=== PATIENT | male | born 1945 | race Caucasian/White ===

== ENCOUNTER 2017-06-27 00:02 | Emergency (ER) | payer MEDICARE ==
[~2017-06-27] VITALS: Ht 177.8 cm; Wt 70.8 kg
[~2017-06-27 00:02] MED LIST changes: -ASPI-1471 PO
[2017-06-27] MEDS ORDERED: DILTIAZEM 5 MG/ML 5ML IVPUSH IVP ONE (00:10)
[2017-06-27] MEDS ORDERED: ASPIRIN 81 MG CHEW PO ONE (00:10)
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
[2017-06-27 00:19] LABS: PLATELET COUNT, AUTOMATED 243 K/uL (150-450)
[2017-06-27] MEDS ORDERED: ONDANSETRON 4 MG/2 ML VIAL ONE (00:24)
[2017-06-27] MEDS ORDERED: MORPHINE 4 MG/ML SYR IVP ONE (00:25)
[2017-06-27] MEDS ORDERED: MORPHINE 4 MG/ML SYR ONE (00:25)
[2017-06-27] MEDS ORDERED: ONDANSETRON 4 MG/2 ML VIAL IVP ONE (00:25)
[2017-06-27 00:31] LABS: INR 0.97
[2017-06-27] MEDS: HEPARIN (PORC) 5000 UN/ML VIAL ONE ×2 (00:35→00:44)
--- NOTE | 2017-06-27 00:36 | RADIOLOGY IMAGING REPORT ---
FACILITY: [facility] - [place] PATIENT NAME: Fany Casas : 1945 MR: [id number] V: [id number] EXAM DATE: ORDERING PHYSICIAN: CHARO DAMIAN TECHNOLOGIST: Location: [facility] Patient: Fany Casas : 1945 Visit/Account:[id number] Date of Sevice: 06/27/2017 SINGLE AP RADIOGRAPH OF THE CHEST 06/27/2017 12:10 AM. INDICATION: Chest pain. COMPARISON: 05/24/2011. FINDINGS: There is bilateral prominent mixed opacification with relative sparing of the upper lungs. Small ple ural effusions not excluded. No pneumothorax. Cardiac silhouette is borderline enlarged. Multiple remote right rib fractures. IMPRESSION: Suspicious for multifocal pneumonia. Edema could potentially have a similar appearance. Report Dictated By: Miguel Angel Tanner MD at 06/27/2017 12:29 AM Report E-Signed By: Miguel Angel Tanner MD at 06/27/2017 12:31 AM WSN:[id number]
[2017-06-27] MEDS ORDERED: HEPARIN* SOD/D5W 25000 U/500ML 500 ML IV ONE (00:37)
[2017-06-27] MEDS ORDERED: CLOPIDOGREL BISULFATE 75MG TAB PO ONE (00:40)
--- NOTE | 2017-06-27 01:23 | RADIOLOGY IMAGING REPORT ---
FACILITY: [facility] - [place] PATIENT NAME: Fany Casas : 1945 MR: [id number] V: [id number] EXAM DATE: ORDERING PHYSICIAN: CHARO DAMIAN TECHNOLOGIST: [place] [facility] [place] Fany Casas : 1945 Visit/Account:[id number] Date of Sevice: 06/27/2017 Portable chest: Indication: Tube placement. Technique: A single frontal film was obtained. Comparison: A prior study from earlier the same day. Lines and tubes: The tip of the ET tube is 5.3 cm above the nika. Skeletal and soft tissue structures: Unchanged. Heart and mediastinum: Stable. Lung frazier: There is a persistent diffuse edema pattern, compatible with vascular congestion or diff use pneumonia. There is been no change. Pleural spaces: No evidence of pneumothorax. Probable small right effusion. Impression: The ET tube is 5.3 cm above the nika. The lung frazier appear unchanged. Report Dictated By: Krishna Durham MD at 06/27/2017 1:14 AM Report E-Signed By: Krishna Durham MD at 06/27/2017 1:18 AM WSN:[id number]
--- NOTE | 2017-06-27 01:47 | EKG ---
FACILITY: [facility] - [place] PATIENT NAME: THEA SANTANA : [id number] MR: [id number] V: [id number] EXAM DATE: ORDERING PHYSICIAN: CHARO DAMIAN TECHNOLOGIST: ISRAEL Guzman Reason : TACHYCARDIA Blood Pressure : / mmHG Vent. Rate : 129 BPM Atrial Rate : 129 BPM P-R Int : 136 ms QRS Dur : 160 ms QT Int : 376 ms P-R-T Axes : 025 -27 121 degrees QTc Int : 550 ms Wide complex tachycardia Left bundle branch morphology Diffuse ST-T abnormalities Abnormal ECG Confirmed by HUMBERTO MCCANN ([id number] on 06/27/2017 6:17:46 AM Referred By: RICKIE Confirmed By:HUMBERTO MCCANN
[2017-06-27] MEDS ORDERED: ASPI-1471 PO (02:46)
[2017-06-27] MEDS ORDERED: NS(*) 0.9% 1000 ML BAG 1,000 ML IV ONE ×2 (03:35→03:40)
[2017-06-27] MEDS ORDERED: PROPOFOL(*)1000 MG/100 ML VIAL 100 ML IV PRN (04:30)
[2017-06-27] MEDS ORDERED: ETOMIDATE 20 MG/10 ML VIAL IVP ONE (04:30)
[2017-06-27] MEDS ORDERED: PROPOFOL EMUL 10MG/ML 20 ML VL IVP ONE (04:30)
[2017-06-27] MEDS ORDERED: SUCCINYLCHOL CHL 200MG/10ML VL IVP ONE (04:30)
[2017-06-27] MEDS ORDERED: MIDAZOLAM 2 MG/2 ML VIAL IVP ONE (04:30)
== END 2017-06-27 01:36 | disposition short-term general hospital (02) ==
LOC: ER 00:29
DX: J96.01 Acute respiratory failure with hypoxia (principal); I50.9 Heart failure, unspecified; I95.9 Hypotension, unspecified; I44.7 Left bundle-branch block, unspecified; I24.9 Acute ischemic heart disease, unspecified
CPT/HCPCS: 31500; 36600; 71045; 81001; 82803; 83880; 84484; 85025; 85379; 85610; 85730; 93005; 94002; 94770; 96365; 96375; 99291; A9270; C1758; J0330; J1644; J2250; J2270; J2405; J2704; J3490; J7030; 82040; 82247; 82310; 82374; 82435; 82565; 82947; 84075; 84132; 84155; 84295; 84450; 84460; 84520; 99285

== ENCOUNTER → 2017-06-27 | Outpatient (REF) ==
[~2017-06-27] MED LIST: ALLO-119 PO; ASPI-1471 PO; ASPI-715 PO; CEP500 PO; CILO100T25 PO; CIP500 PO; CLO75 PO; ESC10 PO; FAM20 PO; IBU600 PO; LOR5/325 PO; OMEG-11 PO; PHENA200 PO; [UNRECOGNIZED DRUG - REMARK]
== END ==
LOC: AMB 01:02
PROVIDERS: ATTEND Nurse Practitioner
DX: Z02.9 Encounter for administrative examinations, unspecified (principal)

== ENCOUNTER 2017-10-29 08:53 | Inpatient (IN) | payer MEDICARE ==
[2017-10-28 11:42] VITALS: BP 152/90
[~2017-10-29] VITALS: Ht 175.3 cm; Wt 67.1 kg
[~2017-10-29 08:53] MED LIST changes: +ASPI-1471 PO
--- NOTE | 2017-10-29 09:00 | ER Report ---
History and Physical Time Seen By MD: 08:58 HPI/ROS CHIEF COMPLAINT: GI bleed since last night HISTORY OF PRESENT ILLNESS: Patient is a 71 yo M here with new complaint of GI bleed since last evening. Patient reports several episodes of GI bleed with BRBPR with some clotting. Patient is otherwise well-appearing, complains of mild fatigue. He has a history of aortic valve replacement and is currently on aspirin regimen without other anticoagulation. He had a single bowel movement while in the emergency department which was grossly positive for blood. He remains hemodynamically stable at time of evaluation. He has had a recent colonoscopy within the last 5 years which was normal per patient report. He denies fevers, chills, CP, SOB, N/V. He does have complaints of mid/low back pain intermittently for the past week. + hematochezia. Patient does have a history of bladder cancer which was treated several years prior. REVIEW OF SYSTEMS: Constitutional: No fever, no chills, + fatigue Eyes: No discharge. ENT: No sore throat. Cardiovascular: No chest pain, no palpitations. Respiratory: No cough, no shortness of breath. Gastrointestinal: + mild right abdominal pain, no vomiting, + hematochezia Genitourinary: No hematuria. Musculoskeletal: + mild low back pain. Skin: No rashes. Neurological: No headache. Allergies: Coded Allergies: No Known Drug Allergies (Verified , 10/29/17) Home Meds Reported Medications Enalapril Maleate (ENALAPRIL MALEATE) 10 Mg Tablet, 10 MG PO QDAY 10/29/17 Aspirin (ASPIR 81) 81 Mg Tablet.dr, 81 MG PO QDAY, TAB 06/27/17 Allopurinol (ZYLOPRIM) 300 Mg Tablet, PO QDAY, TAB 09/12/14 Discontinued Reported Medications Cilostazol (Cilostazol) 100 Mg Tablet, 100 MG PO QODAY, 0 Refills 05/21/11 Past Medical/Surgical History Deep vein thrombosis, bladder cancer, aortic valve replacement Hx Smoking: No Smoking Status: Former Smoker Hx Substance Use Disorder: No Hx Alcohol Use: No Constitutional Vital Sign - Last 24 Hours 10/29/17 10/29/17 10/29/17 10/29/17 09:00 09:03 09:23 09:30 Temp 97.6 Pulse 81 72 Resp 20 B/P (MAP) 147/81 147/81 (103) 126/67 (86) Pulse Ox 92 93 O2 Delivery Room Air Physical Exam General Appearance: The patient is alert, has no immediate need for airway protection and no current signs of toxicity. Eyes: Pupils equal and round no injection. Respiratory: Chest is non tender, lungs are clear to auscultation. Cardiac: regular rate and rhythm [ ] Gastrointestinal: Abdomen is soft and + mild right abdominal tenderness, no masses, bowel sounds normal. Musculoskeletal: Neck: Neck is supple and non tender. Extremities have full range of motion and are non tender. Skin: No rashes or lesions. DIFFERENTIAL DIAGNOSIS: After history and physical exam differential diagnosis was considered for Lower GI bleed, upper GI bleed, diverticulitis, cancer, polyp , AVM Medical Decision Making Data Points Result Diagram: 10/29/1711 10/29/17 0911 Laboratory Hematology Test 10/29/17 00:00 10/29/17 09:11 10/29/17 09:38 Stool Occult Blood (IFOB) Positive (NEGATIVE) Red Blood Count 4.09 M/uL (4.00-5.60) Mean Corpuscular Volume 96.5 fL (80.0-96.0) Mean Corpuscular Hemoglobin 33.0 pg (26.0-33.0) Mean Corpuscular Hemoglobin Concent 34.2 g/dL (32.0-36.0) Red Cell Distribution Width 14.1 % (11.5-14.5) Mean Platelet Volume 6.9 fL (7.2-11.1) Neutrophils (%) (Auto) 71.1 % (39.4-72.5) Lymphocytes (%) (Auto) 15.4 % (17.6-49.6) Monocytes (%) (Auto) 7.8 % (4.1-12.4) Eosinophils (%) (Auto) 4.9 % (0.4-6.7) Basophils (%) (Auto) 0.8 % (0.3-1.4) Nucleated RBC Relative Count (auto) 0.0 /100WBC Neutrophils # (Auto) 4.9 K/uL (2.0-7.4) Lymphocytes # (Auto) 1.0 K/uL (1.3-3.6) Monocytes # (Auto) 0.5 K/uL (0.3-1.0) Eosinophils # (Auto) 0.3 K/uL (0.0-0.5) Basophils # (Auto) 0.1 K/uL (0.0-0.1) Nucleated RBC Absolute Count (auto) 0.00 K/uL Prothrombin Time 13.1 seconds (12.0-14.4) Prothromb Time International Ratio 0.99 Activated Partial Thromboplast Time 26 seconds (23-35) Sodium Level 131 mmol/L (137-145) Potassium Level 4.6 mmol/L (3.5-5.0) Chloride Level 96 mmol/L (98-107) Carbon Dioxide Level 25 mmol/L (22-30) Blood Urea Nitrogen 13 mg/dl (9-21) Creatinine 0.90 mg/dl (0.66-1.25) Glomerular Filtration Rate Calc > 60.0 Random Glucose 119 mg/dl (75-110) Calcium Level 9.5 mg/dl (8.4-10.2) Total Bilirubin 0.6 mg/dl (0.2-1.3) Aspartate Amino Transf (AST/SGOT) 49 U/L (0-35) Alanine Aminotransferase (ALT/SGPT) 34 U/L (0-56) Alkaline Phosphatase 93 U/L (0-126) Total Protein 7.0 gm/dl (6.3-8.2) Albumin 3.9 g/dl (3.5-5.0) Lipase 86 U/L (23-300) Urine Color Yellow Urine Clarity Clear Urine pH 5.0 pH (4.8-9.5) Urine Specific Orosi 1.012 Urine Protein Negative mg/dL (NEGATIVE) Urine Glucose (UA) Negative mg/dL (NEGATIVE) Urine Ketones Negative mg/dL (NEGATIVE) Urine Blood Negative (NEGATIVE) Urine Nitrite Negative (NEGATIVE) Urine Bilirubin Negative (NEGATIVE) Urine Urobilinogen Negative mg/dL (0.2-1.9) Urine Leukocyte Esterase Negative (NEGATIVE) Urine RBC None /HPF (0-2/HPF) Urine WBC <1 /HPF (0-5/HPF) Urine Squamous Epithelial Cells Few /LPF (</=FEW) Urine Bacteria Negative /HPF (NONE-FEW) Urine Mucus None /HPF (NONE-FEW) Chemistry Test 10/29/17 00:00 10/29/17 09:11 10/29/17 09:38 Stool Occult Blood (IFOB) Positive (NEGATIVE) White Blood Count 6.8 k/uL (4.5-11.0) Red Blood Count 4.09 M/uL (4.00-5.60) Hemoglobin 13.5 g/dL (14.0-18.0) Hematocrit 39.5 % (42.0-52.0) Mean Corpuscular Volume 96.5 fL (80.0-96.0) Mean Corpuscular Hemoglobin 33.0 pg (26.0-33.0) Mean Corpuscular Hemoglobin Concent 34.2 g/dL (32.0-36.0) Red Cell Distribution Width 14.1 % (11.5-14.5) Platelet Count 269 K/uL (150-450) Mean Platelet Volume 6.9 fL (7.2-11.1) Neutrophils (%) (Auto) 71.1 % (39.4-72.5) Lymphocytes (%) (Auto) 15.4 % (17.6-49.6) Monocytes (%) (Auto) 7.8 % (4.1-12.4) Eosinophils (%) (Auto) 4.9 % (0.4-6.7) Basophils (%) (Auto) 0.8 % (0.3-1.4) Nucleated RBC Relative Count (auto) 0.0 /100WBC Neutrophils # (Auto) 4.9 K/uL (2.0-7.4) Lymphocytes # (Auto) 1.0 K/uL (1.3-3.6) Monocytes # (Auto) 0.5 K/uL (0.3-1.0) Eosinophils # (Auto) 0.3 K/uL (0.0-0.5) Basophils # (Auto) 0.1 K/uL (0.0-0.1) Nucleated RBC Absolute Count (auto) 0.00 K/uL Prothrombin Time 13.1 seconds (12.0-14.4) Prothromb Time International Ratio 0.99 Activated Partial Thromboplast Time 26 seconds (23-35) Glomerular Filtration Rate Calc > 60.0 Calcium Level 9.5 mg/dl (8.4-10.2) Total Bilirubin 0.6 mg/dl (0.2-1.3) Aspartate Amino Transf (AST/SGOT) 49 U/L (0-35) Alanine Aminotransferase (ALT/SGPT) 34 U/L (0-56) Alkaline Phosphatase 93 U/L (0-126) Total Protein 7.0 gm/dl (6.3-8.2) Albumin 3.9 g/dl (3.5-5.0) Lipase 86 U/L (23-300) Urine Color Yellow Urine Clarity Clear Urine pH 5.0 pH (4.8-9.5) Urine Specific Orosi 1.012 Urine Protein Negative mg/dL (NEGATIVE) Urine Glucose (UA) Negative mg/dL (NEGATIVE) Urine Ketones Negative mg/dL (NEGATIVE) Urine Blood Negative (NEGATIVE) Urine Nitrite Negative (NEGATIVE) Urine Bilirubin Negative (NEGATIVE) Urine Urobilinogen Negative mg/dL (0.2-1.9) Urine Leukocyte Esterase Negative (NEGATIVE) Urine RBC None /HPF (0-2/HPF) Urine WBC <1 /HPF (0-5/HPF) Urine Squamous Epithelial Cells Few /LPF (</=FEW) Urine Bacteria Negative /HPF (NONE-FEW) Urine Mucus None /HPF (NONE-FEW) Coagulation Test 10/29/17 09:11 Prothrombin Time 13.1 seconds Prothromb Time International Ratio 0.99 Activated Partial Thromboplast Time 26 seconds Urinalysis Test 10/29/17 09:38 Urine Color Yellow Urine Clarity Clear Urine pH 5.0 pH (4.8-9.5) Urine Specific Orosi 1.012 Urine Protein Negative mg/dL (NEGATIVE) Urine Glucose (UA) Negative mg/dL (NEGATIVE) Urine Ketones Negative mg/dL (NEGATIVE) Urine Blood Negative (NEGATIVE) Urine Nitrite Negative (NEGATIVE) Urine Bilirubin Negative (NEGATIVE) Urine Urobilinogen Negative mg/dL (0.2-1.9) Urine Leukocyte Esterase Negative (NEGATIVE) Urine RBC None /HPF (0-2/HPF) Urine WBC <1 /HPF (0-5/HPF) Urine Squamous Epithelial Cells Few /LPF (</=FEW) Urine Bacteria Negative /HPF (NONE-FEW) Urine Mucus None /HPF (NONE-FEW) EKG/Imaging Imaging ABDOMEN/PELVIS WITH CONTRAST HISTORY: GI bleed, abdominal and back pain TECHNIQUE: Axial images were obtained through the abdomen and pelvis with intravenous contrast . One of the following dose optimization techniques was utilized in the performance of this exam: automated exposure control; adjustment of the mA and/or kv according to patient size; or use of iterative reconstruction technique. Specific details can be referenced in the facility's radiology CT exam operational policy. CONTRAST: 75 cc of Isovue-370 COMPARISON: None. FINDINGS: Visualized lung bases: Negative. Hepatobiliary: Negative. Spleen: Negative. Adrenals: Negative. Pancreas: Negative. Kidneys/ureters/bladder: Right nephrectomy. Left kidney normal size without hydronephrosis. Bowel/peritoneum/mesentery: Colonic diverticulosis without acute inflammatory change. No bowel obstruction, free air or ascites. Vessels: Mild arterial calcifications. Lymph nodes: Negative. Pelvic genitourinary: Negative. Bones/body wall: Multilevel [id number] degenerative disc disease within the spine. Multiple Schmorl's nodes. Fusion of the right SI joint. Other findings: None significant IMPRESSION: 1. No acute inflammatory process identified. ED Course/Re-evaluation ED Course Patient is a 71-year-old male here with complaints of GI bleeding since yesterday with several subsequent episodes of hematochezia. Patient reports mild fatigue this morning as well as repeat episodes of bloody bowel movements prompting evaluation. He is on aspirin but denies further anticoagulation. He denies prior episodes of GI bleeding. He did have a colonoscopy several years ago which was normal per patient report. Patient has a history of bladder cancer s/p treatment with chemotherapy approximately 4 years ago. Patient is also s/p AVR not currently on anticoagulation. MINISTERIO + for gross blood without localized pain. BM was + for gross blood. I discussed the patient with Dr. Carrasco from the hospitalist service who accepted the patient for further evaluation. Patient remained HD stable during ED course. Re-evaluation Patient remained hemodynamically stable at time of her evaluation. I updated the patient regarding lab findings and imaging findings and he voiced understanding. Decision to Disposition Date: October 29, 2017 Decision to Disposition Time: 11:32 Depart Departure Latest Vital Signs Vital Signs Date Time Temp Pulse Resp B/P (MAP) Pulse Ox O2 Delivery O2 Flow Rate FiO2 10/29/17 09:30 126/67 (86) 10/29/17 09:23 72 93 10/29/17 09:00 97.6 20 Room Air Impression: Primary Impression: GI bleeding Condition: Condition Unchanged Disposition: Admitted from ER Referrals: NAY HOLMAN MD (PCP) MARTINEZ MATA DO October 29, 2017 09:00
[2017-10-29] MEDS ORDERED: ENAL-18 PO (09:08)
[2017-10-29] MEDS ORDERED: NS(*) 0.9% 1000 ML BAG 1,000 ML IV ONE (09:29)
[2017-10-29 09:39] LABS: PLATELET COUNT, AUTOMATED 269 K/uL (150-450)
[2017-10-29] MEDS ORDERED: IOPAMIDOL 76% 75 ML INFUS BTL 75 ML ONE (09:42)
[2017-10-29 09:45] LABS: INR 0.99
--- NOTE | 2017-10-29 10:44 | RADIOLOGY IMAGING REPORT ---
FACILITY: [facility] [place] PATIENT NAME: Fany Casas : 1945 MR: [id number] V: [id number] EXAM DATE: ORDERING PHYSICIAN: MARTINEZ MATA TECHNOLOGIST: Location: [facility] Patient: Fany Casas : 1945 Visit/Account:[id number] Date of Sevice: 10/29/2017 ABDOMEN/PELVIS WITH CONTRAST HISTORY: GI bleed, abdominal and back pain TECHNIQUE: Axial images were obtained through the abdomen and pelvis with intravenous contrast . One of the following dose optimization techniques was utilized in the performance of this exam: automate d exposure control; adjustment of the mA and/or kv according to patient size; or use of iterative rec onstruction technique. Specific details can be referenced in the facility's radiology CT exam operati onal policy. CONTRAST: 75 cc of Isovue-370 COMPARISON: None. FINDINGS: Visualized lung bases: Negative. Hepatobiliary: Negative. Spleen: Negative. Adrenals: Negative. Pancreas: Negative. Kidneys/ureters/bladder: Right nephrectomy. Left kidney normal size without hydronephrosis. Bowel/peritoneum/mesentery: Colonic diverticulosis without acute inflammatory change. No bowel obstr uction, free air or ascites. Vessels: Mild arterial calcifications. Lymph nodes: Negative. Pelvic genitourinary: Negative. Bones/body wall: Multilevel [id number] degenerative disc disease within the spine. Multiple Sc hmorl's nodes. Fusion of the right SI joint. Other findings: None significant IMPRESSION: 1. No acute inflammatory process identified. Report Dictated By: Jaquan Allison MD at 10/29/2017 10:35 AM Report E-Signed By: Jaquan Allison MD at 10/29/2017 10:40 AM WSN:[id number]
[2017-10-29 12:53] VITALS: BP 152/90
--- NOTE | 2017-10-29 13:14 | History & Physical ---
History of Present Illness Chief Complaint Bright red blood per rectum with clots History of Present Illness Mr. Gibson is a 71 y.o male with PMH of DVT in 2009, AVR in 2018, s/p R- Nephrectomy in 1980 and Bladder cancer in 2011 presented with new complaint of GI bleed since last evening. Patient reported few episodes of BRBPR with some dark red clots. Patient was otherwise well-appearing in the ER with c/o mild fatigue. He denies fevers, chills, CP, SOB, N/V, but + hematochezia. He denied having epigastric pain and hemorrhoids. He had a single bowel movement while in the emergency department which was grossly positive for blood. He remained hemodynamically stable at time of evaluation in the ER. He has had a recent colonoscopy within the last [address] Cameron which was normal per patient report. He has had complaints of low back pain intermittently for the past week after he lifted heavy michael. Patient does have a history of bladder cancer which was treated several years prior with Chemotherapy. He has a history of aortic valve replacement and is currently on aspirin and Plavix regimen. His last dose of Plavix was this am. His leather scraper advised to stop the Plavix on September 16, 2017 but patient had extra refill and he took the last pill today. ER evaluation revealed Hb 13.5g, and CT Scan of A/P: Axial images were obtained through the abdomen and pelvis with intravenous contrast. No acute inflammatory process identified. I discussed the case with the ER-MD and admitted the patient for further evaluation and management. He is afebrile and hemodynamically stable at present without any significant complaint. History Home Meds Reported Medications Enalapril Maleate (ENALAPRIL MALEATE) 10 Mg Tablet, 10 MG PO QDAY 10/29/17 Aspirin (ASPIR 81) 81 Mg Tablet., 81 MG PO QDAY, TAB 06/27/17 Allopurinol (ZYLOPRIM) 300 Mg Tablet, PO QDAY, TAB 09/12/14 Discontinued Reported Medications Cilostazol (Cilostazol) 100 Mg Tablet, 100 MG PO QODAY, 0 Refills 05/21/11 Allergies: Coded Allergies: No Known Drug Allergies (Verified , 10/29/17) Patient History: FH: CHF (congestive heart failure) FATHER, , Age:94 FH: dementia MOTHER, Age:95 FH: diabetes mellitus FH: kidney disease BROTHER OR SISTER No significant family history CHILD CHILD Hx Smoking: Yes Smoking Status: Former Smoker, Heavy Tobacco Smoker Exposure to Second Hand Smoke?: Yes When Quit Tobacco?: 10/2013 Caffeine Intake: Coffee Caffeine/Cups Per Day: 3 Hx Alcohol Use: Yes Alcohol Used: Beer Hx Substance Use Disorder: No Review of Systems Constitutional: No Fever, No Weight Loss, No Weight Gain, No Chills Neurological: No Confusion, No Weakness, No Dizziness Cardiovascular: No Chest Pain, No Palpitations Respiratory: No Shortness of Breath, No Cough Gastrointestinal: No Nausea, No Vomiting, No Diarrhea, No Dysphagia, No Constipation, No Early Satiety, No Hematemesis, Hematochezia, No Abdominal Pain Genitourinary: No Dysuria, No Hematuria Musculoskeletal: No Pain, No Sprain, No Strain Psychiatric: No Depression, No Anxiety Exam Vital Signs Vital Signs Date Time Temp Pulse Resp B/P (MAP) Pulse Ox O2 Delivery O2 Flow Rate FiO2 10/29/17 12:53 97.8 66 20 152/90 (110) 96 Room Air General Appearance: Alert, Awake, No Acute Distress, Afebrile Neuro: No Gross deficits Eyes: PERRLA ENT: Normal Neck: No Masses Cardiovascular: Normal Rhythm & Peripheral Pulses, No Edema, No JVD Respiratory: No Respiratory Distress GI: Abd Soft and Non-Tender : Normal Extremities: Soft and Non Tender Integumentary: Skin Intact without Lesion / Mass Psych: Alert & Oriented X3, Appropriate Mood & Affect Medical Decision Making Data Points Result Diagram: 10/29/1791010/29/17 0911 reviewed Pre-Admit Course ED Medications reviewed Medical Record Review: Yes Assessment and Plan Problems: (1) GI bleeding Status: Acute Assessment & Plan: Most likely anorectal bleed because his CT A/P is negative and he does not have epigastric symptoms. I will admit him to medical floor for further evaluation and management I will start Protonix 40mg IV bid I will start IVF D5NS at 80ml/h I will keep him NPO I will start Zofran 4mg IV q6h as needed for nausea I will keep him on DVTP with bilateral LE-SCD's I will get BMP and CBC in am and Hb level q 4h I will get surgical consult and colonoscopy if active GIB occurs (2) Gout Status: Chronic Assessment & Plan: He is astble for years and I will hold his Allopurinol for now. Condition guarded Time Spent on Plan of Care: > 30 min Copies to: NAY HOLMAN MD Venous Thromboembolism VTE Risk Physician Assess for VTE Risk: Yes Patient's VTE Risk: Low VTE Diagnostic Test 2 Days Prior to Admit: No Antithrombotics Is Pt On Any Antithrombotics?: No Exam Sepsis Risk: No Definite Risk Problem Qualifiers (1) GI bleeding: GI bleed type/associated pathology: anorectal hemorrhage Qualified Codes: K62.5 - Hemorrhage of anus and rectum (2) Gout: Gout site: foot MORENITA TOBIAS MD October 29, 2017 13:13
[2017-10-29] MEDS ORDERED: ONDANSETRON 4 MG/2 ML VIAL IVP PRN (14:00)
[2017-10-29] MEDS ORDERED: ACETAMINOPHEN 325 MG TAB PO PRN (14:00)
[2017-10-29] MEDS ORDERED: D5NS(*) 1000 ML BAG 1,000 ML IV PRN (14:05)
[2017-10-29 16:16] VITALS: BP 136/68
[2017-10-29 19:00] VITALS: BP 132/89
--- NOTE | 2017-10-29 19:00 | Gen Surgery History & Physical ---
History of Present Illness Chief Complaint GI Bleeding History of Present Illness 71 year old male with past medical history of aortic valve replacement in Jun with Dr. Trejo at [facility] who has been on Plavix and ASA since then presents with acute onset GI bleeding which began last night around 6pm. The patient then had 4-5 additional bowel movements overnight which contained blood. He denies any lightheadedness, chest pain, SOB. He denies previous episodes. Blood in bowl of toilet with clots and mixed in with stool. Bright red and dark mixed. He had a colonoscopy ~[address] Cameron. He states this was normal, and he did not have any polyps. Denies knowing of a history of diverticulosis. No history of colon cancer in his family. The patient was actually approved to go off of the Plavix last month, but had continued it. He denies abdominal pain. Previous history of R nephrectomy. History Unable To Obtain Past Medical: Aortic valve replacement, R nephrectomy, bladder cancer (OLLIE x 6 years) Problems: Home Meds Reported Medications Enalapril Maleate (ENALAPRIL MALEATE) 10 Mg Tablet, 10 MG PO QDAY 10/29/17 Aspirin (ASPIR 81) 81 Mg Tablet.dr, 81 MG PO QDAY, TAB 06/27/17 Allopurinol (ZYLOPRIM) 300 Mg Tablet, PO QDAY, TAB 09/12/14 Discontinued Reported Medications Cilostazol (Cilostazol) 100 Mg Tablet, 100 MG PO QODAY, 0 Refills 05/21/11 Allergies: Coded Allergies: No Known Drug Allergies (Verified , 10/29/17) Patient History: FH: CHF (congestive heart failure) FATHER, , Age:94 FH: dementia MOTHER, Age:95 FH: diabetes mellitus FH: kidney disease BROTHER OR SISTER No significant family history CHILD CHILD Review of Systems Constitutional: No Fever, No Weight Loss Neurological: No Syncope, No Confusion, No Weakness Eyes: No Vision Change, No Loss of Vision Cardiovascular: No Chest Pain, No Palpitations Respiratory: No Shortness of Breath Gastrointestinal: No Nausea, No Vomiting, No Diarrhea, No Constipation, Hematochezia, No Abdominal Pain Genitourinary: No Dysuria Musculoskeletal: No Pain Psychiatric: No Depression, No Anxiety Exam General Appearance: Alert, Awake, No Acute Distress, Afebrile Neuro: No Gross deficits Eyes: PERRLA ENT: Moist Mucous Membranes Cardiovascular: Normal Rhythm & Peripheral Pulses Respiratory: No Respiratory Distress GI: Abd Soft and Non-Tender : Other (Digital rectal exam reveals no evidence of external hemorrhoids, normal sphincter tone, hematochezia in vault, no tenderness, no lesions palpated ) Musculoskeletal: No Weakness/Pain Extremities: Soft and Non Tender, Warm, Perfused Integumentary: Skin Intact without Lesion / Mass Psych: Alert & Oriented X3, Appropriate Mood & Affect Medical Decision Making Data Points Result Diagram: 10/29/17 1830 10/29/17 0911 EKG / Imaging Monitor Interpretation: Normal Sinus Rhythm Pre-Admit Course Medical Record Review: Yes Assessment and Plan Problems: (1) GI bleeding Status: Acute Assessment & Plan: 71 year old male with recent history of aortic valve replacement, on ASA and Plavix at home, who presents with new onset GI bleeding. Based on nature and appearance of bleeding, my suspicion is that this is lower GI bleeding. His hgb was 13 at time of admission, and drifted to 11.7 this afternoon. On retest just now, it is stable at 12. I discussed with the patient that it is not within the scope of my practice to perform diagnostic and therapeutic endoscopic intervention, and that this is what I would recommend. Could also consider reversal of anti-platelet effect from ASA and Plavix with PCC, however, on discussion with the pharmacy, this medication is not available here. The patient is hemodynamically stable. I discussed with the patient, his , and the hospitalist, that were his hgb to continue to drift downward, I would advise transfer to [facility] for definitive endoscopy and possible PCC. If the patient hgb remains stable, can engage Dr. Cameron on Tuesday for endoscopy. The patient and his were allowed the opportunity to ask questions, and I addressed all of these to their satisfaction. Thank you for allowing me to be a part of this patient's care, call with any questions or concerns. Central Venous Access Medical Necessity for Access: Hemodynamic Monitoring, IV Access, Medication Administration Time Spent: > 30 min Venous Thromboembolism Antithrombotics Is Pt On Any Antithrombotics?: No Problem Qualifiers (1) GI bleeding: GI bleed type/associated pathology: unspecified gastrointestinal hemorrhage type Qualified Codes: K92.2 - Gastrointestinal hemorrhage, unspecified BERTHA WELLER MD October 29, 2017 18:59
[2017-10-29] MEDS ORDERED: CLOP75TA PO (20:09)
[2017-10-29] MEDS ORDERED: ENAL2.5T52 PO (20:09)
[2017-10-29] MEDS ORDERED: GARL1TAB9 PO (20:11)
[2017-10-29] MEDS ORDERED: CRAN200C5 PO (20:11)
[2017-10-29] MEDS: PANTOPRAZOLE SOD 40 MG IV VIAL IVP SCH (20:41)
[2017-10-29 22:59] VITALS: BP 126/68
[2017-10-29 23:43] VITALS: BP 82/52
[2017-10-29 23:47] VITALS: BP 113/54
[2017-10-30] VITALS (15 sets, daily range): BP systolic 103–152; BP diastolic 59–83; Ht 175.3 cm; Wt 67.1 kg
[2017-10-30] MEDS ORDERED: NS(*) 0.9% 1000 ML BAG 1,000 ML IV PRN (00:15)
[2017-10-30 07:24] LABS: PLATELET COUNT, AUTOMATED 211 K/uL (150-450)
--- NOTE | 2017-10-30 07:44 | General Surgery Progress Note ---
Subjective Progress Notes Subjective [place] light headed last night after having a BM, but did not lose consciousness. Received 1U FFP. Hgb stable. BM this morning with minimal blood. Patient Complains of: Neurological: Dizziness Cardiovascular: No: Chest Pain, Palpitations Respiratory: No: Shortness of Breath Gastrointestinal: No Nausea, No Vomiting Physical Exam Vital Signs Date Time Temp Pulse Resp B/P (MAP) Pulse Ox O2 Delivery O2 Flow Rate FiO2 10/30/17 05:34 97.5 74 20 152/64 10/30/17 00:46 99 Nasal Cannula 0.5 General Appearance: Alert, Awake, No Acute Distress Neuro: No Gross deficits Eyes: PERRLA Cardiovascular: Regular Rate and Rhythm Respiratory: No Respiratory Distress GI: Soft and Non-Tender Extremities: Soft and Non Tender, Warm, Perfused Integumentary: Skin Intact without Lesion / Mass Result Diagram: 10/30/1771110/30/17711 Monitor Interpretation: Normal Sinus Rhythm Assessment and Plan Problems: (1) GI bleeding Status: Acute Assessment & Plan: 71 year old male with recent history of aortic valve replacement, on ASA and Plavix at home, who presents with new onset GI bleeding. 10/29/17: Based on nature and appearance of bleeding, my suspicion is that this is lower GI bleeding. His hgb was 13 at time of admission, and drifted to 11.7 this afternoon. On retest just now, it is stable at 12. I discussed with the patient that it is not within the scope of my practice to perform diagnostic and therapeutic endoscopic intervention, and that this is what I would recommend. Could also consider reversal of anti-platelet effect from ASA and Plavix with PCC, however, on discussion with the pharmacy, this medication is not available here. The patient is hemodynamically stable. I discussed with the patient, his , and the hospitalist, that were his hgb to continue to drift downward, I would advise transfer to [facility] for definitive endoscopy and possible PCC. If the patient hgb remains stable, can engage Dr. Cameron on Tuesday for endoscopy. 10/30/17: One episode of feeling light headed in bathroom after BM last night, but did not lose consciousness. He had a BM this morning that had minimal blood. Hgb remains stable. Hemodynamically stable. If acute worsening of condition, would continue to advise transfer. If remains stable, will engage Dr. Cameron tomorrow. Central Venous Access Medical Necessity for Access: Hemodynamic Monitoring, IV Access, Medication Administration Time Spent: < 30 min Exam Sepsis Risk: No Definite Risk Problem Qualifiers (1) GI bleeding: GI bleed type/associated pathology: unspecified gastrointestinal hemorrhage type Qualified Codes: K92.2 - Gastrointestinal hemorrhage, unspecified BERTHA WELLER MD October 30, 2017 07:44
[2017-10-30] MEDS: PANTOPRAZOLE SOD 40 MG IV VIAL IVP SCH ×2 (10:51→21:01)
--- NOTE | 2017-10-30 12:30 | Hospitalist Progress Note ---
Subjective Progress Notes Subjective Mr. Gibson is a 71 y.o male with PMH of DVT in 2009, AVR in 2018, s/p R- Nephrectomy in 1980 and Bladder cancer in 2011 presented with new complaint of GI bleed since last evening. Patient reported few episodes of BRBPR with some dark red clots. Patient was otherwise well-appearing in the ER with c/o mild fatigue. He denies fevers, chills, CP, SOB, N/V, but + hematochezia. He denied having epigastric pain and hemorrhoids. He had a single bowel movement while in the emergency department which was grossly positive for blood. He remained hemodynamically stable at time of evaluation in the ER. He has had a recent colonoscopy within the last [address] Cameron which was normal per patient report. He has had complaints of low back pain intermittently for the past week after he lifted heavy michael. Patient does have a history of bladder cancer which was treated several years prior with Chemotherapy. He has a history of aortic valve replacement and is currently on aspirin and Plavix regimen. His last dose of Plavix was this am. His canteen attendant advised to stop the Plavix on September 16, 2017 but patient had extra refill and he took the last pill today. ER evaluation revealed Hb 13.5g, and CT Scan of A/P: Axial images were obtained through the abdomen and pelvis with intravenous contrast. No acute inflammatory process identified. I discussed the case with the ER-MD and admitted the patient for further evaluation and management. He is afebrile and hemodynamically stable at present without any significant complaint. 10/30: events noted, last night patient became light headed after using the toilet and dropped his BP to 80/50's. He did not lose consciousness. He regain his BP after lying in the bed. He was given 1 unit of blood and 2 units of FPP. He responded well to the FPP and he has been having less and less GIB. His Hb is stable at 11g. Today he is afebrile and hemodynamically stable without any complaint. Patient Complains of: Neurological: Dizziness, No: Confusion, Weakness Cardiovascular: No: Chest Pain, Palpitations Respiratory: No: Cough, Congestion, Shortness of Breath Gastrointestinal: Bowel Movement, No Nausea, No Vomiting Genitourinary: No Dysuria, No Hematuria Musculoskeletal: No: Pain, Sprain, Strain Physical Exam Vital Signs Date Time Temp Pulse Resp B/P (MAP) Pulse Ox O2 Delivery O2 Flow Rate FiO2 10/30/17 11:16 92 10/30/17 11:15 Room Air 10/30/17 11:10 0.5 10/30/17 11:03 98.0 73 20 141/80 (100) Intake and Output 10/31/17 06:59 Intake Total 700 ml Balance 700 ml Intake IV Total 700 ml # Voids 1 # Bowel Movements 1 General Appearance: Alert, Awake, No Acute Distress, Afebrile Neuro: No Gross deficits Eyes: PERRLA ENT: Normal Neck: No Masses Cardiovascular: Normal Rhythm & Peripheral Pulses Respiratory: No Respiratory Distress, Clear to Auscultation GI: Soft and Non-Tender Extremities: Soft and Non Tender Integumentary: Skin Intact without Lesion / Mass Psych: Alert & Oriented X3, Appropriate Mood & Affect Result Diagram: 10/30/17 1109 10/30/17 0712 Monitor Interpretation: Normal Sinus Rhythm Assessment and Plan Problems: (1) GI bleeding Status: Acute Assessment & Plan: Most likely anorectal bleed because his CT A/P is negative and he does not have epigastric symptoms. I will admit him to medical floor for further evaluation and management I will start Protonix 40mg IV bid I will start IVF D5NS at 80ml/h I will keep him NPO I will start Zofran 4mg IV q6h as needed for nausea I will keep him on DVTP with bilateral LE-SCD's I will get BMP and CBC in am and Hb level q 4h I will get surgical consult and colonoscopy if active GIB occurs 10/30: I will continue present management I will change his H/H q 8h I will change his IVF to D5NS at 80ml/h Surgical consult by Dr. Rene/Rakesh in am for colonoscopy Colon prep later (2) Gout Status: Chronic Assessment & Plan: He is astble for years and I will hold his Allopurinol for now. Central Venous Access Medical Necessity for Access: Hemodynamic Monitoring, IV Access, Medication Administration Time Spent on Plan of Care: > 30 min Copies to: NAY HOLMAN MD; JACOB MCLEAN MD; VANESA CAMERON MD Exam Sepsis Risk: No Definite Risk Problem Qualifiers (1) GI bleeding: GI bleed type/associated pathology: unspecified gastrointestinal hemorrhage type Qualified Codes: K92.2 - Gastrointestinal hemorrhage, unspecified (2) Gout: Gout site: [facility] MORENITA TOBIAS MD October 30, 2017 12:30
[2017-10-30] MEDS: D5NS(*) 1000 ML BAG 1,000 ML IV PRN (12:51)
--- NOTE | 2017-10-30 18:33 | RADIOLOGY IMAGING REPORT ---
FACILITY: [facility] [place] PATIENT NAME: Fany Casas : 1945 MR: [id number] V: [id number] EXAM DATE: ORDERING PHYSICIAN: MORENITA TOBIAS TECHNOLOGIST: Location: [facility] [place] Patient: Fany Casas : 1945 Visit/Account:[id number] Date of Sevice: 10/30/2017 CHEST SINGLE AP Indication: Pre-op evaluation.. Comparison: 06/27/2017. Findings: Cardiomediastinal silhouette and pulmonary vessels within normal limits for the technique. Improved aeration to the lungs. No focal areas of consolidation. Chronic interstitial changes. No pneumothorax or pleural effusion. No nodule. Upper abdomen is unremarkable. No acute bony abnormality. Multiple old right rib fractures . IMPRESSION: 1. No acute cardiopulmonary process. Report Dictated By: Michael Hernández at 10/30/2017 6:29 PM Report E-Signed By: Michael Hernández at 10/30/2017 6:30 PM WSN:[id number]
[2017-10-30 20:00] LABS: INR 1.04
[2017-10-31 00:05] VITALS: BP 133/90
[2017-10-31] MEDS: D5NS(*) 1000 ML BAG 1,000 ML IV PRN (00:51)
[2017-10-31 02:56] VITALS: BP 148/82
[2017-10-31 07:40] VITALS: BP 153/72
[2017-10-31] MEDS: PANTOPRAZOLE SOD 40 MG IV VIAL IVP SCH (09:24)
--- NOTE | 2017-10-31 09:31 | General Surgery Consultation ---
History of Present Illness Requesting Physician Dr. Ruiz, hospitalist Reason for Consult GI bleeding Chief Complaint GI bleeding History of Present Illness 71-year-old gentleman presents with a combination of dark blood and bright red blood per rectum with clots. This started 3 days ago. He was admitted to the hospitalist service. They gave him 1 unit of packed red blood cells and 2 units of FFP. He has not had any bleeding now for the last day and a half. No abdominal pain. He feels back to normal. He did have a TAVR 4 months ago down in [place] and has been on aspirin and Plavix for this. He took his last dose of Plavix 3 days ago and is not supposed to be on any more. He had a colonoscopy about [address] Cameron and according to the patient this was normal. He has no known family history of colon or rectal cancer. He's never before had problems with GI bleeding. History Problems: (1) S/P TAVR (transcatheter aortic valve replacement) Status: Chronic (2) Gout Status: Chronic Home Meds Reported Medications Cranberry Extract (CRANBERRY) 200 Mg Capsule, 200 MG PO DAILY, CAPSULE 10/29/17 Garlic (GARLIC) 1 Each Tablet, 1 EACH PO DAILY 10/29/17 Clopidogrel Bisulfate (CLOPIDOGREL) 75 Mg Tablet, 1 TAB PO QDAY, TAB 10/29/17 Enalapril Maleate (ENALAPRIL MALEATE) 2.5 Mg Tablet, 2.5 MG PO BID 10/29/17 Aspirin (ASPIR 81) 81 Mg Tablet.dr, 81 MG PO QDAY, TAB 06/27/17 Allopurinol (ZYLOPRIM) 300 Mg Tablet, PO QDAY, TAB 09/12/14 Discontinued Reported Medications Enalapril Maleate (ENALAPRIL MALEATE) 10 Mg Tablet, 10 MG PO QDAY 10/29/17 Cilostazol (Cilostazol) 100 Mg Tablet, 100 MG PO QODAY, 0 Refills 05/21/11 Allergies: Coded Allergies: No Known Drug Allergies (Verified , 10/29/17) Family History: FH: CHF (congestive heart failure) FATHER, , Age:94 FH: dementia MOTHER, Age:95 FH: diabetes mellitus FH: kidney disease BROTHER OR SISTER No significant family history CHILD CHILD Review of Systems All Systems Reviewed/Normal: Yes, Except as Noted Gastrointestinal: Hematochezia, Melena Exam Vital Signs Vital Signs Date Time Temp Pulse Resp B/P (MAP) Pulse Ox O2 Delivery O2 Flow Rate FiO2 10/31/17 07:41 91 Nasal Cannula 1.0 10/31/17 07:40 97.6 60 16 153/72 (99) General Appearance: Alert, Awake, No Acute Distress, Afebrile Neuro: No Gross deficits Eyes: PERRLA GI: Abd Soft and Non-Tender Extremities: Warm, Perfused Medical Decision Making Data Points Result Diagram: 10/31/17 0311 10/31/17 0540 Assessment and Plan Problems: (1) GI bleeding Status: Acute Assessment & Plan: 10/31/17: Doing well, no evidence of continued bleeding. H& H is stable. Okay to DC from surgical standpoint and I will see him in my office and we will set him up for an EGD and a colonoscopy. Patient advised to avoid any blood thinners or NSAIDs for the next week. If he has no further evidence of GI bleeding then he can start a baby aspirin in a week. He seems agreeable with this plan. Central Venous Access Medical Necessity for Access: Hemodynamic Monitoring, IV Access, Medication Administration Condition Stable Time Spent: < 30 min Venous Thromboembolism Antithrombotics Is Pt On Any Antithrombotics?: No Problem Qualifiers (1) GI bleeding: GI bleed type/associated pathology: unspecified gastrointestinal hemorrhage type Qualified Codes: K92.2 - Gastrointestinal hemorrhage, unspecified GLEN LOW MD October 31, 2017 09:31
--- NOTE | 2017-10-31 10:39 | Hospitalist Progress Note ---
Subjective Progress Notes Subjective He conklin snot had any bloody/dark stools for over 24hrs. He denies any specific complaints today, but does report generalized weakness. Physical Exam Vital Signs Date Time Temp Pulse Resp B/P (MAP) Pulse Ox O2 Delivery O2 Flow Rate FiO2 10/31/17 10:21 91 10/31/17 09:38 Room Air 10/31/17 07:41 1.0 10/31/17 07:40 97.6 60 16 153/72 (99) General Appearance: Alert, Awake Cardiovascular: Regular Rate and Rhythm Respiratory: Clear to Auscultation GI: Soft and Non-Tender (BS present) Extremities: Warm, Perfused Psych: Alert & Oriented X3 Result Diagram: 10/31/17 0311 10/31/17 0540 Monitor Interpretation: Normal Sinus Rhythm Assessment and Plan Problems: (1) GI bleeding Status: Acute Assessment & Plan: Most likely anorectal bleed because his CT A/P is negative and he does not have epigastric symptoms. I will admit him to medical floor for further evaluation and management I will start Protonix 40mg IV bid I will start IVF D5NS at 80ml/h I will keep him NPO I will start Zofran 4mg IV q6h as needed for nausea I will keep him on DVTP with bilateral LE-SCD's I will get BMP and CBC in am and Hb level q 4h I will get surgical consult and colonoscopy if active GIB occurs 10/30: I will continue present management I will change his H/H q 8h I will change his IVF to D5NS at 80ml/h Surgical consult by Dr. Rene/Rakesh in am for colonoscopy Colon prep later 10/31: It does not appear he has any ongoing acute bleeding. Hgb/Hct are stable. He did have colonoscopy in 2011, which only showed diverticulosis. Will have Dr. Rene see regarding possible endoscopy. (2) Gout Status: Chronic Assessment & Plan: He has been stable for years and I will hold his Allopurinol for now. Central Venous Access Medical Necessity for Access: Hemodynamic Monitoring, IV Access, Medication Administration Exam Sepsis Risk: No Definite Risk Problem Qualifiers (1) GI bleeding: GI bleed type/associated pathology: unspecified gastrointestinal hemorrhage type Qualified Codes: K92.2 - Gastrointestinal hemorrhage, unspecified (2) Gout: Gout site: HUMEBRTO Herzog MD October 31, 2017 10:39
[2017-10-31 16:47] VITALS: BP 140/89
[2017-10-31 19:33] VITALS: BP 147/99
[2017-10-31] MEDS: PANTOPRAZOLE SOD 40 MG TABEC PO SCH (20:55)
[2017-11-01 00:35] VITALS: BP 157/91
[2017-11-01 05:56] LABS: PLATELET COUNT, AUTOMATED 207 K/uL (150-450)
[2017-11-01 08:14] VITALS: BP 178/81
--- NOTE | 2017-11-01 08:24 | General Surgery Progress Note ---
Subjective Progress Notes Subjective No new complaints. No further blood per rectum. Physical Exam Vital Signs Date Time Temp Pulse Resp B/P (MAP) Pulse Ox O2 Delivery O2 Flow Rate FiO2 11/01/17 00:35 98.8 74 14 157/91 (113) 91 Room Air 10/31/17 07:41 1.0 General Appearance: Alert, Awake, No Acute Distress, Afebrile GI: Soft and Non-Tender Extremities: Warm, Perfused Result Diagram: 11/01/17 0507 11/01/17 0507 Monitor Interpretation: Normal Sinus Rhythm Assessment and Plan Problems: (1) GI bleeding Status: Acute Assessment & Plan: 10/31/17: Doing well, no evidence of continued bleeding. H& H is stable. Okay to DC from surgical standpoint and I will see him in my office and we will set him up for an EGD and a colonoscopy. Patient advised to avoid any blood thinners or NSAIDs for the next week. If he has no further evidence of GI bleeding then he can start a baby aspirin in a week. He seems agreeable with this plan. 11/01/17: No evidence of continued bleeding. He needs a EGD and colonoscopy to evaluate his upper and lower GI tract. He is upset that we didn't do these yesterday even though he hadn't been bowel prepped. He reports to me and is adamant that he does not need a bowel prep as he hasn't eaten for several days. "I know my body and there is nothing in my colon". I have told him that he needs a bowel prep for colonoscopy because there is always some stool in his colon even without eating for several days and I don't want to perform a subpar study on him. I have told him that if he is showing signs of active bleeding then we do these scopes emergently in the hospital to stop active bleeding but he has not shown any signs of active bleeding for a couple of days and so I have recommended elective outpatient scopes in the next couple of weeks because , due to my schedule we would not be able to do these procedures until 6 or 7 at night and since he is not actively bleeding I would prefer to do them electively. He was not frustrated yesterday when I explained this plan to him but this morning he is very frustrated and he reports that he is going to go down to [place] to have these done. I told him that the results down there would be the same as here for outpatient endoscopy. He will still require the bowel prep etc. He continues to insist that he will go to [place] for the scopes after discharge. He can follow-up with me as needed. Central Venous Access Medical Necessity for Access: Hemodynamic Monitoring, IV Access, Medication Administration Condition Stable Time Spent: < 30 min Exam Sepsis Risk: No Definite Risk Problem Qualifiers (1) GI bleeding: GI bleed type/associated pathology: unspecified gastrointestinal hemorrhage type Qualified Codes: K92.2 - Gastrointestinal hemorrhage, unspecified GLEN LOW MD November 01, 2017 08:24
[2017-11-01] MEDS: PANTOPRAZOLE SOD 40 MG TABEC PO SCH (09:13)
[2017-11-01] MEDS ORDERED: OMEP-218 PO (10:00)
--- NOTE | 2017-11-01 10:12 | Hospitalist Depart ---
Discharge Summary Reason for Hosp/Final Diag: (1) GI bleeding Status: Acute Hospital Course & Plan: Mr. Gibson is a 71 y.o male with PMH of DVT in 2009 , AVR in 2018, s/p R-Nephrectomy in 1980 and Bladder cancer in 2011 presented with new complaint of GI bleed since last evening. Patient reported few episodes of BRBPR with some dark red clots. Patient was otherwise well- appearing in the ER with c/o mild fatigue. He denies fevers, chills, CP, SOB, N/ V, but + hematochezia. He denied having epigastric pain and hemorrhoids. He had a single bowel movement while in the emergency department which was grossly positive for blood. He remained hemodynamically stable at time of evaluation in the ER. He has had a recent colonoscopy within the last [address] Cameron which was normal per patient report. He has had complaints of low back pain intermittently for the past week after he lifted heavy michael. Patient does have a history of bladder cancer which was treated several years prior with Chemotherapy. He has a history of aortic valve replacement and is currently on aspirin and Plavix regimen. His last dose of Plavix was this am. His billiard parlor manager advised to stop the Plavix on September 16, 2017 but patient had extra refill and he took the last pill today. ER evaluation revealed Hb 13.5g, and CT Scan of A/P: Axial images were obtained through the abdomen and pelvis with intravenous contrast. No acute inflammatory process identified. I discussed the case with the ER-MD and admitted the patient for further evaluation and management. He is afebrile and hemodynamically stable at present without any significant complaint. Most likely anorectal bleed because his CT A/P is negative and he does not have epigastric symptoms. I will admit him to medical floor for further evaluation and management I will start Protonix 40mg IV bid I will start IVF D5NS at 80ml/h I will keep him NPO I will start Zofran 4mg IV q6h as needed for nausea I will keep him on DVTP with bilateral LE-SCD's I will get BMP and CBC in am and Hb level q 4h I will get surgical consult and colonoscopy if active GIB occurs 10/30: events noted, last night patient became light headed after using the toilet and dropped his BP to 80/50's. He did not lose consciousness. He regain his BP after lying in the bed. He was given 1 unit of blood and 2 units of FPP. He responded well to the FPP and he has been having less and less GIB. His Hb is stable at 11g. Today he is afebrile and hemodynamically stable without any complaint. I will continue present management I will change his H/H q 8h I will change his IVF to D5NS at 80ml/h Surgical consult by Dr. Rene/Rakesh in am for colonoscopy Colon prep later 10/31: It does not appear he has any ongoing acute bleeding. Hgb/Hct are stable. He did have colonoscopy in 2011, which only showed diverticulosis. Will have Dr. Rene see regarding possible endoscopy. Surgical consult Recommendations: 10/31/17: Doing well, no evidence of continued bleeding. H&H is stable. Okay to SD from surgical standpoint and I will see him in my office and we will set him up for an EGD and a colonoscopy. Patient advised to avoid any blood thinners or NSAIDs for the next week. If he has no further evidence of GI bleeding then he can start a baby aspirin in a week. He seems agreeable with this plan. 11/01: [place] patient is afebrile and hemodynamically stable without any significant complaint. He denies any further GI bleed and his H/H are stable at 10.9/31.7. I discussed the plan with the patient and he decided to have colonoscopy at [facility]. He will make the arrangements. I have advised him to hold his Plavix and ASA for now and I will place him on Prilosec 20mg po bid. (2) Gout Status: Chronic Hospital Course & Plan: He has been stable for years and I will hold his Allopurinol for now. 11/01: He can resume his Allopurinol Departure Weight (Pounds): 148 Result Diagram: 11/01/17 0507 11/01/17506 Condition: Improved Discharge: Home, Self Care Discharge Code Status: Full Code Discharge Instructions Home Meds Reported Medications Cranberry Extract (CRANBERRY) 200 Mg Capsule, 200 MG PO DAILY, CAPSULE 10/29/17 Garlic (GARLIC) 1 Each Tablet, 1 EACH PO DAILY 10/29/17 Clopidogrel Bisulfate (CLOPIDOGREL) 75 Mg Tablet, 1 TAB PO QDAY, TAB 10/29/17 Enalapril Maleate (ENALAPRIL MALEATE) 2.5 Mg Tablet, 2.5 MG PO BID 10/29/17 Aspirin (ASPIR 81) 81 Mg Tablet.dr, 81 MG PO QDAY, TAB 06/27/17 Allopurinol (ZYLOPRIM) 300 Mg Tablet, PO QDAY, TAB 09/12/14 Discontinued Reported Medications Enalapril Maleate (ENALAPRIL MALEATE) 10 Mg Tablet, 10 MG PO QDAY 10/29/17 Cilostazol (Cilostazol) 100 Mg Tablet, 100 MG PO QODAY, 0 Refills 05/21/11 Diet: Regular Activity: As Tolerated Special Instructions: Patient will arrange his colonoscopy at [facility]. Venous Thromboembolism Antithrombotics Is Pt On Any Antithrombotics?: No Problem Qualifiers (1) GI bleeding: GI bleed type/associated pathology: unspecified gastrointestinal hemorrhage type Qualified Codes: K92.2 - Gastrointestinal hemorrhage, unspecified (2) Gout: Gout site: [facility] MORENITA TOBIAS MD November 01, 2017 10:12
== END 2017-11-01 11:10 | disposition home or self-care (01) | DRG 378 ==
LOC: ER 09:03 → MED 11:19
PROVIDERS: ADMIT Specialist; ATTEND Specialist
PROC: 30233K1 Transfusion of Nonautologous Frozen Plasma into Peripheral Vein, Percutaneous Approach (ICD-10-PCS; principal; 2017-10-30)
PROC: 30233N1 Transfusion of Nonautologous Red Blood Cells into Peripheral Vein, Percutaneous Approach (ICD-10-PCS; 2017-10-30)
DX: K92.1 Melena (principal); D62 Acute posthemorrhagic anemia; M1A.9XX0 Chronic gout, unspecified, without tophus (tophi); Z90.5 Acquired absence of kidney; Z85.51 Personal history of malignant neoplasm of bladder; Z87.891 Personal history of nicotine dependence; Z92.21 Personal history of antineoplastic chemotherapy; Z79.82 Long term (current) use of aspirin; Z86.718 Personal history of other venous thrombosis and embolism; Z95.2 Presence of prosthetic heart valve
CPT/HCPCS: 36415; 36430; 71045; 74177; 81001; 82040; 82247; 82274; 82310; 82374; 82435; 82565; 82947; 83690; 84075; 84132; 84155; 84295; 84450; 84460; 84520; 85014; 85018; 85025; 85610; 85730; 86850; 86900; 86901; 86920; 99284; C9113; J7030; J7042; P9016; P9017; Q9967

== ENCOUNTER → 2017-11-10 | Outpatient (CLI) | payer MEDICARE ==
[2017-10-30 11:17] VITALS: BMI 21.9
[~2017-11-10] MED LIST changes: +CLOP75TA PO; +CRAN200C5 PO; +ENAL-18 PO; +ENAL2.5T52 PO; +GARL1TAB9 PO; +OMEP-218 PO
[2017-11-10 14:17] LABS: PLATELET COUNT, AUTOMATED 281 K/uL (150-450)
== END ==
LOC: LAB 13:58
PROVIDERS: ATTEND Internal Medicine Gastroenterology
DX: K92.2 Gastrointestinal hemorrhage, unspecified (principal)
CPT/HCPCS: 36415; 85025